=== PATIENT | female | born 1965 | race Caucasian/White ===

== ENCOUNTER 2022-08-21 07:13 | Day surgery (SDC) | payer BC ==
[2022-08-20 10:06] VITALS: BMI 24.9
[2022-08-21] MEDS ORDERED: PROPOFOL 0 ML ONE (08:27)
[2022-08-21] MEDS ORDERED: PROPOFOL 20 ML ONE (09:30)
== END 2022-08-21 10:15 | disposition home or self-care (01) ==
LOC: CSHSDC 07:13
PROVIDERS: ATTEND Internal Medicine Gastroenterology
PROC: 0D757ZZ Dilation of Esophagus, Via Natural or Artificial Opening (ICD-10-PCS; principal; 2022-08-21)
PROC: 0DB58ZX Excision of Esophagus, Via Natural or Artificial Opening Endoscopic, Diagnostic (ICD-10-PCS; principal; 2022-08-21)
DX: K21.00 Gastro-esophageal reflux disease with esophagitis, without bleeding (principal); K22.10 Ulcer of esophagus without bleeding; K29.50 Unspecified chronic gastritis without bleeding; K44.9 Diaphragmatic hernia without obstruction or gangrene; R13.10 Dysphagia, unspecified; E03.9 Hypothyroidism, unspecified; Z79.890 Hormone replacement therapy; Z90.12 Acquired absence of left breast and nipple; Z88.1 Allergy status to other antibiotic agents
CPT/HCPCS: 88305; 88312; 88313; J2704

== ENCOUNTER 2024-05-25 09:55 | Outpatient (CLI) | payer BC | END 2024-05-25 09:56 | disposition home or self-care (01) | LOC: CSHMAMMO 09:55 | PROVIDERS: ATTEND Internal Medicine | DX: Z78.0 Asymptomatic menopausal state (principal) | CPT/HCPCS: 77080 ==